=== PATIENT | female | born 1955 | race Caucasian/White ===

== ENCOUNTER → 2024-05-21 10:21 | Outpatient (REF) | payer MEDICARE, OTHER, SELFPAY | LOC: HWWDC 10:21 | PROVIDERS: ATTENDING PHYSICIAN Family Medicine; REFERRING PHYSICIAN Obstetrics & Gynecology | DX: Z12.31 Encounter for screening mammogram for malignant neoplasm of breast (principal) | CPT/HCPCS: 77063; 77067 ==

== ENCOUNTER → 2024-08-09 09:59 | Outpatient (REF) | payer MEDICARE, OTHER, SELFPAY | LOC: WDC 09:59 | PROVIDERS: ATTENDING PHYSICIAN Family Medicine; REFERRING PHYSICIAN Obstetrics & Gynecology | DX: R92.2 Inconclusive mammogram (principal) | CPT/HCPCS: 76641 ==

== ENCOUNTER 2025-02-06 10:48 | Emergency (ER) | payer MEDICARE, OTHER, SELFPAY ==
[2025-02-06 10:51] VITALS: BP 200/102
--- NOTE | 2025-02-06 13:00 | ED.GENMED ---
History of Present Illness
General
Chief Complaint: Heart Rate Problem
Source: patient
Exam Limitations: none
Time Seen by Provider: 02/06/25 12:51
Nursing documentation reviewed up to this point in time: agreed with
History of Present Illness
History of Present Illness:
69-year-old female with history as noted presents for evaluation of palpitations. Patient reports onset of symptoms Tuesday and they have been intermittent since then. She reports that she has episodes of palpitations and this sensation is
associated with the urge to cough which seems to resolve the symptoms. Today she also had some mild associated dizziness. She has not had any chest pain or shortness of breath. Denies any other acute complaints. She says that she did have some
palpitations in the past and saw pipe smoker machine operator Dr. Romo and had workup including EKG, echocardiogram, Holter monitor which was reportedly normal.
Past History
Past History
ED Past Medical History: GERD and Psychiatric
ED Past Surgical History: Cholecystectomy, Gynecological (Hysterectomy) and Other
Social History
Tobacco: Non-smoker
Alcohol: Daily (Wine 2 glasses)
Drug: None
Personal: (same sex)
Living: with family
Review of Systems
Review of Systems
All Other Systems: ROS reviewed and negative except as documented in HPI and ROS
Constitutional: Denies fever
Respiratory: Reports cough; Denies trouble breathing
Cardiac: Reports palpitations; Denies chest pain
ABD/GI: Denies abdominal pain
Neurological: Reports dizzy; Denies headache
Phy Exam
Physical Exam
Physical Exam:
General: Awake, alert; no acute distress
Head: Normocephalic, atraumatic
Eyes: Conjunctiva normal
Throat: Airway intact, handling secretions
Neck: Trachea midline, no JVD
Lungs: Clear to auscultation bilaterally, no wheezing, rales, rhonchi
Heart: Regular rate and rhythm, no murmurs, gallops, or rubs
Neuro: Grossly intact
Skin: Warm and dry
Extremities: No edema in extremities, equal pulses in all extremities
Scores
Heart Failure Risk
Heart Failure Risk Score: Not Applicable
Heart Score for Chest Pain Patients
STEMI patient?: Not applicable
Withdrawal Assessment of Alcohol
Withdrawal Assessment Completed?: Not applicable
Course
Orders/Labs/Results
Orders:
Orders
02/06/25 10:54
EKG [Electrocardiogram (*1)] Urgent
Reason for Study: Palpitations
EKG- Treatment ONCE
02/06/25 12:54
CR Chest - 2 Views Urgent
Comment:
Reason For Exam: cough
02/06/25 13:32
Comprehensive Metabolic Panel Urgent
02/06/25 13:33
COVID-19 Antigen Urgent
Source: Nasal Swab
Complete Blood Count/With Diff Urgent
Influenza A+B Rapid Molecular Urgent
[facility] Source: Nasal Swab
Specimen Description:
Abnormal Lab Results
02/06/25
13:32
Glucose 105 H mg/dl
(70-99)
02/06/25 13:33
02/06/25 13:32
Vital Signs
Initial and Last Documented VS:
Initial Vital Signs
Temp Pulse Resp BP Pulse Ox
36.7 C 71 16 200/102 100
02/06/25 10:51 02/06/25 10:51 02/06/25 10:51 02/06/25 10:51 02/06/25 10:51
Last Documented Vital Signs
Temp Pulse Resp BP Pulse Ox
36.7 C 71 16 154/102 100
02/06/25 10:51 02/06/25 10:51 02/06/25 10:51 02/06/25 13:14 02/06/25 13:01
MDM/Problems Addressed
Differential Diagnosis Includes:
PVCs/PACs, A-fib, SVT, anxiety
MDM/Problems Addressed:
69-year-old female presents for evaluation of palpitations for the past few days associated with the urge to cough. She was hypertensive in triage but blood pressure normalized by my assessment, rest of vitals normal. Heart rate in the 70s. EKG
shows sinus rhythm with PVCs patient admits she was having symptoms during exam and so overall suspect her symptoms are related to PVCs. Check basic labs including electrolytes. With report of cough will check chest x-ray. Can likely be
discharged with cardiology referral.
Labs reviewed: CBC and CMP no clinically significant abnormalities. Chest x-ray reviewed by me shows no acute disease. Patient clinically stable on reassessment. Stable for discharge follow-up with cardiology as an outpatient for symptomatic
PVCs. Spoke to patient will start low-dose Toprol especially given blood pressure running high today and this may help with PVCs. Patient comfortable with this plan. All questions answered.
Acute Exacerbation and/or Progression of Chronic Illness: HTN
*Radiology
Radiology exam reviewed: preliminary read by ED provider
*Pulse Oximetry
SaO2: 100
Oxygen Mode of Delivery: Room air
Patient hypoxic: no (100%)
*EKG
Interpreted by ED Provider?: Yes
Heart Rate: 74
Rate: normal
Rhythm: sinus and PVC's
[place]: normal axis
Interval: normal interval
QRS Pattern: normal QRS
Ischemia: no ischemia
*Critical Care Note
Total Time (30-74mins, 75-104mins- exclusive of procedures): Not Applicable
Data Reviewed
Source: patient
ED Attending Note
-
Portions of this chart may have been created with voice recognition software.� Occasional wrong word or��sound alike� substitutions may have occurred due to the inherent limitations of voice recognition software.
Discharge Plan
Departure
Patient Disposition: Home (Routine Discharge)
Date of Disposition: 02/06/25
Time of Disposition: 14:15
Patient with high blood pressure during this ER visit?: Yes
Discharge Problem:
Symptomatic PVCs
Instructions: Palpitations (DC)
Prescriptions:
New
metoprolol succinate [Toprol XL] 25 mg tablet extended release 24 hr
12.5 mg PO DAILY Qty: 30 0RF
No Action
famotidine 40 MG tablet
40 mg PO HS
docusate sodium 100 MG capsule
200 mg PO HS
polyethylene glycol 3350 [HealthyLax] 17 gram Powder In Packet
17 g PO BID Qty: 0 0RF
gabapentin 100 mg Capsule
100 mg PO TID Qty: 90 0RF
oxycodone 5 mg Tablet
5 mg PO Q3HPRN PRN (Reason: moderate pain) Qty: 20 0RF
ibuprofen 800 mg tablet
800 mg PO TID Qty: 15 0RF
Referrals:
Se Duque, DO [Active, Cardiology] - Call in 1-3 days for appt
Activity Restrictions/Additional Instructions:
You were seen in the emergency room for palpitations and found to have premature beats that are causing your symptoms. You should follow-up with a pipe smoker machine operator for further assessment after your ER visit. In the meantime avoiding alcohol and
caffeine can help to minimize your symptoms. You should also make sure to get plenty of sleep and avoid stress.
During your ER visit you were noted to have high blood pressure initially�it improved during your ER observation. But you should follow-up with your primary doctor within the next week or 2 to have your blood pressure rechecked.
Interventions
Interventions:
*Risk Screen - Suicide Last Done: 02/06/25 10:51
*General Assessment Last Done: 02/06/25 10:51
*Neglect/Abuse Screening Last Done: 02/06/25 13:14
*ED- Fall Risk Assessment Last Done: 02/06/25 13:14
*ED COVID-19 Vaccine History Last Done: 02/06/25 10:51
*ED Influenza Vaccine History Last Done: 02/06/25 10:51
ED- Cardiac Assessment Last Done: 02/06/25 13:14
ED- Pulmonary Assessment Last Done: 02/06/25 13:14
Discharge Date and Time
Print Language: [id number]
[2025-02-06 13:13] VITALS: BMI 26.8
[2025-02-06 13:14] VITALS: BP 154/102
[2025-02-06 13:44] LABS: Hematocrit 43.6 % (37.0-47.0); Hemoglobin 15.1 g/dL (12.0-16.0); Mean Corp Hgb Conc. 34.6 g/dL (33.0-37.0); Mean Corpuscular Volume 89.5 fL (81.0-99.0); Nucleated Red Blood Cells % 0 %; Platelet Count 214 10^3/uL (130-400); Red Cell Dist. Width 11.9 % (11.5-14.5)
[2025-02-06 14:00] VITALS: BP 108/70
[2025-02-06 14:04] LABS: ALT (SGPT) 19 U/L (0-35); AST (SGOT) 19 U/L (14-36); Albumin 4.7 g/dl (3.5-5.0); Alkaline Phosphatase 101 U/L (38-126); Blood Urea Nitrogen 14 mg/dl (7-17); Calcium 9.6 mg/dl (8.4-10.2); Carbon Dioxide 26 mmol/L (22-30); Chloride 105 mmol/L (98-107); Estimated Creatinine Clearance 61 ml/min; Glucose 105 mg/dl (70-99); Potassium 4.1 mmol/L (3.5-5.1); Sodium 138 mmol/L (135-145); Total Protein 7.1 g/dl (6.3-8.2); eGFR > 60.00
[2025-02-06 14:08] LABS: COVID-19 Antigen Negative (Negative)
== END 2025-02-06 14:15 | disposition home or self-care (01) ==
LOC: EMR 10:48
PROVIDERS: EMERGENCY PHYSICIAN Emergency Medicine; FAMILY PHYSICIAN Family Medicine
DX: I49.3 Ventricular premature depolarization (principal); I10 Essential (primary) hypertension; K21.9 Gastro-esophageal reflux disease without esophagitis
CPT/HCPCS: 99284; 71046; 80053; 85025; 87502; 87811; 93005

== ENCOUNTER → 2025-03-27 08:19 | Outpatient (REF) | payer MEDICARE, OTHER, SELFPAY ==
[2025-03-27 10:39] LABS: Blood Urea Nitrogen 17 mg/dl (7-17); Calcium 9.4 mg/dl (8.4-10.2); Carbon Dioxide 26 mmol/L (22-30); Chloride 104 mmol/L (98-107); Glucose 85 mg/dl (70-99); Potassium 4.5 mmol/L (3.5-5.1); Sodium 137 mmol/L (135-145); eGFR > 60.00
== END ==
LOC: RAD 08:19
PROVIDERS: ATTENDING PHYSICIAN Nurse Practitioner Family; FAMILY PHYSICIAN Family Medicine; OTHER PHYSICIAN Internal Medicine Cardiovascular Disease
DX: G44.031 Episodic paroxysmal hemicrania, intractable (principal); I65.23 Occlusion and stenosis of bilateral carotid arteries; R00.2 Palpitations; R07.2 Precordial pain; K21.9 Gastro-esophageal reflux disease without esophagitis; Z82.49 Family history of ischemic heart disease and other diseases of the circulatory system; Z13.6 Encounter for screening for cardiovascular disorders
CPT/HCPCS: 36415; 80048